=== PATIENT | male | born 1990 | race Caucasian/White ===

== ENCOUNTER 2016-07-21 01:20 | Inpatient (IN) | payer MEDICAID ==
[~2016-07-21] VITALS: Ht 177.8 cm; Wt 100.2 kg
[2016-07-21] MEDS ORDERED: HALOPERIDOL LACTATE 5 MG/ML VIAL IM ONE (02:00)
[2016-07-21] MEDS ORDERED: DiphenhydrAMINE HCL 50 MG/ML VIAL IM ONE (02:00)
[2016-07-21] MEDS ORDERED: LORazepam 2 MG/ML VIAL IM ONE (02:00)
[2016-07-21] MEDS ORDERED: HALOPERIDOL 5 MG TABLET PO PRN (03:00)
[2016-07-21] MEDS ORDERED: ZOLPIDEM TARTRATE 10 MG TABLET PO PRN (03:00)
[2016-07-21 03:23] VITALS: BP 136/79
[2016-07-21 04:34] LABS: BASOPHILS # (AUTO) 0.03 K/uL (0.00-0.20); BASOPHILS % (AUTO) 0.3 % (0.0-2.0); EOSINOPHILS # (AUTO) 0.05 K/uL (0.00-0.70); EOSINOPHILS % (AUTO) 0.52 % (1.0-6.0); HEMOGLOBIN 14.5 g/dL (13.5-17.5); LYMPHOCYTES # (AUTO) 1.9 K/uL (1.0-4.8); LYMPHOCYTES % (AUTO) 19.5 % (22.0-44.0); MEAN CORPUSCULAR HEMOGLOBIN 32.1 pg (26.0-34.0); MEAN CORPUSCULAR HGB CONC 33.9 G/dL (31.0-37.0); MEAN CORPUSCULAR VOLUME 95 fL (80-100); MONOCYTES # (AUTO) 0.8 K/uL (0.1-1.0); MONOCYTES % (AUTO) 8.2 % (2.0-9.0); NEUTROPHILS # (AUTO) 7.1 K/uL (1.8-7.7); NEUTROPHILS % (AUTO) 71.4 % (40.0-70.0); PLATELET COUNT (AUTO) 172 K/uL (150-450); RED BLOOD CELL COUNT(AUTO) 4.53 MIL/uL (4.50-5.90); RED CELL DISTRIBUTION WIDTH 13.1 % (11.5-14.5)
[2016-07-21 04:42] LABS: ANION GAP 6 mmol/L (8-16); CALCIUM, TOTAL 8.8 mg/dL (8.8-10.5); CARBON DIOXIDE 29 mmol/L (22-29); CHLORIDE 105 mmol/L (98-107); CREATININE 0.83 mg/dL (0.60-1.30); GLOMERULAR FILTR. RATE CALC > 60 mL/min (>60); POTASSIUM 4.1 mmol/L (3.5-5.1); SODIUM SERUM 140 mmol/L (136-145); UREA NITROGEN, BLOOD 12 mg/dL (7-18)
[2016-07-21 04:47] LABS: ALANINE AMINOTRANSFERASE 45 U/L (12-78); ALBUMIN 3.8 g/dL (3.4-5.0); ASPARTATE AMINOTRANSFERASE 35 U/L (15-37); BILIRUBIN,TOTAL 0.3 mg/dL (0.1-1.0); TOTAL PROTEIN, SERUM 7.5 g/dL (6.4-8.2)
[2016-07-21 05:47] LABS: APPEARANCE,URINE CLEAR (CLEAR); GLUCOSE, URINE (UA) NEGATIVE (NEGATIVE); KETONES,URINE NEGATIVE (NEGATIVE); LEUKOCYTE ESTERASE ,URINE NEGATIVE (NEGATIVE); OCCULT BLOOD,URINE NEGATIVE (NEGATIVE); PH,URINE 5.5 (5.0-8.0); PROTEIN,URINE NEGATIVE (NEGATIVE)
[2016-07-21 05:50] LABS: ADD UA MICROSCOPIC NO
[2016-07-21 06:08] VITALS: BP 119/73
[2016-07-21 10:37] VITALS: BP 129/81
[2016-07-21] MEDS ORDERED: MAGNESIUM HYDROXIDE SUSPENSION 30 ML UDCUP PO PRN (12:15)
[2016-07-21] MEDS ORDERED: MAG HYDROX/AL HYDROX/SIMETH ES 30 ML SUSPENSION UDCUP PO PRN (12:15)
[2016-07-21] MEDS ORDERED: GuaiFENesin/D-METHORPHAN [SUGAR-FREE] 200-20MG/10 ML SYRUP UDCUP PO PRN (12:15)
[2016-07-21] MEDS ORDERED: TUBERCULIN, PURIFIED PROTEIN DERIVATIVE 5 TU/0.1 ML SYG ID ONE (12:15)
[2016-07-21] MEDS ORDERED: OLANZapine 5 MG RAPDIS TABLET PO PRN (12:15)
[2016-07-21] MEDS ORDERED: LOPERAMIDE HCL 2 MG CAPSULE PO PRN (12:15)
[2016-07-21] MEDS ORDERED: PROMETHAZINE HCL 25 MG TABLET PO PRN (12:15)
[2016-07-21] MEDS ORDERED: HydrOXYzine PAMOATE 50 MG CAPSULE PO PRN (12:15)
[2016-07-21] MEDS: LORazepam 2 MG TABLET PO PRN (15:20)
[2016-07-21 16:00] VITALS: BP 116/60
[2016-07-21] MEDS: THIAMINE HCL 100 MG TABLET PO SCH (16:32)
[2016-07-21] MEDS: MIRTAZAPINE 15 MG TABLET PO SCH (20:37)
[2016-07-21] MEDS ORDERED: QUEtiapine FUMARATE 200 MG TABLET PO SCH (21:00)
[2016-07-21] MEDS ORDERED: OLANZapine 5 MG RAPDIS TABLET PO SCH (21:00)
[2016-07-21] MEDS ORDERED: ClonazePAM 1 MG TABLET PO SCH (21:00)
[2016-07-22 08:27] VITALS: BP 131/75
[2016-07-22] MEDS: MULTIVITAMINS WITH MINERALS, THERAPEUTIC TABLET PO SCH (08:30)
[2016-07-22] MEDS: THIAMINE HCL 100 MG TABLET PO SCH ×2 (08:30→16:11)
[2016-07-22] MEDS: NALTREXONE HCL 50 MG TABLET PO SCH (08:30)
[2016-07-22] MEDS: FOLIC ACID 1 MG TABLET PO SCH (08:30)
[2016-07-22] MEDS ORDERED: CETI-260 PO (09:00)
[2016-07-22] MEDS ORDERED: FLUT16H NASAL (09:01)
[2016-07-22] MEDS ORDERED: KETO5DRO6 OU (09:02)
[2016-07-22] MEDS: FLUTICASONE PROPIONATE 50 MCG/SPRAY 16 GM NASAL SPRAY NASAL SCH (09:18)
[2016-07-22] MEDS: CETIRIZINE HCL 10 MG TABLET PO SCH (09:18)
[2016-07-22] MEDS: NAPHAZOLINE/PHENIR 0.025-0.3% 15 ML OPHTHALMIC SOLUTION OU SCH ×2 (11:28→16:12)
[2016-07-22] MEDS: QUEtiapine FUMARATE 100 MG TABLET PO PRN (14:22)
[2016-07-22] MEDS: LORazepam 2 MG TABLET PO PRN (14:22)
[2016-07-22] MEDS: TERBINAFINE HCL 1% 30 GM CREAM TP SCH (16:11)
[2016-07-22 16:25] VITALS: BP 124/72
[2016-07-22] MEDS: QUEtiapine FUMARATE 200 MG TABLET PO SCH (20:29)
[2016-07-22] MEDS: MIRTAZAPINE 15 MG TABLET PO SCH (20:30)
[2016-07-23 08:00] VITALS: BP 146/85
[2016-07-23] MEDS: THIAMINE HCL 100 MG TABLET PO SCH ×2 (08:09→16:22)
[2016-07-23] MEDS: CETIRIZINE HCL 10 MG TABLET PO SCH (08:09)
[2016-07-23] MEDS: FOLIC ACID 1 MG TABLET PO SCH (08:09)
[2016-07-23] MEDS: MULTIVITAMINS WITH MINERALS, THERAPEUTIC TABLET PO SCH (08:09)
[2016-07-23] MEDS: NALTREXONE HCL 50 MG TABLET PO SCH (08:09)
[2016-07-23] MEDS: QUEtiapine FUMARATE 100 MG TABLET PO PRN (08:11)
[2016-07-23] MEDS: LORazepam 2 MG TABLET PO PRN (08:11)
[2016-07-23] MEDS: NAPHAZOLINE/PHENIR 0.025-0.3% 15 ML OPHTHALMIC SOLUTION OU SCH ×2 (08:12→16:22)
[2016-07-23] MEDS: FLUTICASONE PROPIONATE 50 MCG/SPRAY 16 GM NASAL SPRAY NASAL SCH (08:12)
[2016-07-23] MEDS ORDERED: ONDANSETRON HCL 4 MG TABLET PO PRN (08:15)
[2016-07-23] MEDS: TERBINAFINE HCL 1% 30 GM CREAM TP SCH ×2 (09:36→16:22)
[2016-07-23 16:43] VITALS: BP 117/76
[2016-07-23] MEDS: MIRTAZAPINE 15 MG TABLET PO SCH (21:31)
[2016-07-23] MEDS: QUEtiapine FUMARATE 200 MG TABLET PO SCH (21:31)
[2016-07-24 00:28] VITALS: BP 126/98
[2016-07-24 08:00] VITALS: BP 143/99
[2016-07-24] MEDS: MULTIVITAMINS WITH MINERALS, THERAPEUTIC TABLET PO SCH (09:00)
[2016-07-24] MEDS: NALTREXONE HCL 50 MG TABLET PO SCH (09:00)
[2016-07-24] MEDS: CETIRIZINE HCL 10 MG TABLET PO SCH (09:00)
[2016-07-24] MEDS: TERBINAFINE HCL 1% 30 GM CREAM TP SCH ×2 (09:00→18:47)
[2016-07-24] MEDS: THIAMINE HCL 100 MG TABLET PO SCH ×2 (09:00→18:45)
[2016-07-24] MEDS: FOLIC ACID 1 MG TABLET PO SCH (09:00)
[2016-07-24] MEDS: FLUTICASONE PROPIONATE 50 MCG/SPRAY 16 GM NASAL SPRAY NASAL SCH (09:00)
[2016-07-24] MEDS: NAPHAZOLINE/PHENIR 0.025-0.3% 15 ML OPHTHALMIC SOLUTION OU SCH ×2 (09:26→18:47)
[2016-07-24 16:35] VITALS: BP 123/76
[2016-07-24] MEDS: MIRTAZAPINE 15 MG TABLET PO SCH ×2 (21:47→22:00)
[2016-07-24] MEDS: QUEtiapine FUMARATE 200 MG TABLET PO SCH ×2 (21:47→22:00)
[2016-07-25 06:13] VITALS: BP 130/81
[2016-07-25] MEDS: ACETAMINOPHEN 325 MG TABLET PO PRN (06:15)
[2016-07-25] MEDS: FOLIC ACID 1 MG TABLET PO SCH (08:14)
[2016-07-25] MEDS: TERBINAFINE HCL 1% 30 GM CREAM TP SCH ×2 (08:14→16:07)
[2016-07-25] MEDS: MULTIVITAMINS WITH MINERALS, THERAPEUTIC TABLET PO SCH (08:14)
[2016-07-25] MEDS: FLUTICASONE PROPIONATE 50 MCG/SPRAY 16 GM NASAL SPRAY NASAL SCH (08:14)
[2016-07-25] MEDS: CETIRIZINE HCL 10 MG TABLET PO SCH (08:14)
[2016-07-25] MEDS: NALTREXONE HCL 50 MG TABLET PO SCH (08:14)
[2016-07-25] MEDS: THIAMINE HCL 100 MG TABLET PO SCH ×2 (08:14→16:07)
[2016-07-25] MEDS: LORazepam 2 MG TABLET PO PRN ×2 (08:17→19:12)
[2016-07-25] MEDS: NAPHAZOLINE/PHENIR 0.025-0.3% 15 ML OPHTHALMIC SOLUTION OU SCH ×2 (08:24→16:07)
[2016-07-25 08:29] VITALS: BP 128/81
[2016-07-25] MEDS: QUEtiapine FUMARATE 100 MG TABLET PO PRN (09:43)
[2016-07-25 17:09] VITALS: BP 136/75
[2016-07-25] MEDS: MIRTAZAPINE 15 MG TABLET PO SCH (20:35)
[2016-07-25] MEDS: QUEtiapine FUMARATE 200 MG TABLET PO SCH (20:35)
[2016-07-25] MEDS ORDERED: QUEtiapine FUMARATE 100 MG TABLET PO ONE (21:30)
[2016-07-26 08:33] VITALS: BP 144/94
[2016-07-26] MEDS: FOLIC ACID 1 MG TABLET PO SCH (09:02)
[2016-07-26] MEDS: THIAMINE HCL 100 MG TABLET PO SCH ×2 (09:02→16:21)
[2016-07-26] MEDS: MULTIVITAMINS WITH MINERALS, THERAPEUTIC TABLET PO SCH (09:02)
[2016-07-26] MEDS: QUEtiapine FUMARATE 100 MG TABLET PO PRN (09:03)
[2016-07-26] MEDS: NAPHAZOLINE/PHENIR 0.025-0.3% 15 ML OPHTHALMIC SOLUTION OU SCH ×2 (09:11→16:22)
[2016-07-26] MEDS: NALTREXONE HCL 50 MG TABLET PO SCH (09:11)
[2016-07-26] MEDS: FLUTICASONE PROPIONATE 50 MCG/SPRAY 16 GM NASAL SPRAY NASAL SCH (09:11)
[2016-07-26] MEDS: TERBINAFINE HCL 1% 30 GM CREAM TP SCH ×2 (09:11→16:21)
[2016-07-26] MEDS: CETIRIZINE HCL 10 MG TABLET PO SCH (09:11)
[2016-07-26 16:31] VITALS: BP 132/78
[2016-07-26] MEDS: MIRTAZAPINE 15 MG TABLET PO SCH (20:21)
[2016-07-26] MEDS ORDERED: QUEtiapine FUMARATE 200 MG TABLET PO SCH (21:00)
[2016-07-27 08:07] VITALS: BP 132/82
[2016-07-27] MEDS: ACETAMINOPHEN 325 MG TABLET PO PRN (08:07)
[2016-07-27] MEDS: FLUTICASONE PROPIONATE 50 MCG/SPRAY 16 GM NASAL SPRAY NASAL SCH (08:07)
[2016-07-27] MEDS: FOLIC ACID 1 MG TABLET PO SCH (08:07)
[2016-07-27] MEDS: THIAMINE HCL 100 MG TABLET PO SCH (08:07)
[2016-07-27] MEDS: TERBINAFINE HCL 1% 30 GM CREAM TP SCH (08:08)
[2016-07-27] MEDS: MULTIVITAMINS WITH MINERALS, THERAPEUTIC TABLET PO SCH (08:08)
[2016-07-27] MEDS: CETIRIZINE HCL 10 MG TABLET PO SCH (08:08)
[2016-07-27] MEDS: NALTREXONE HCL 50 MG TABLET PO SCH (08:08)
[2016-07-27] MEDS: NAPHAZOLINE/PHENIR 0.025-0.3% 15 ML OPHTHALMIC SOLUTION OU SCH (08:09)
[2016-07-27 08:46] VITALS: BP 132/82
[2016-07-27] MEDS ORDERED: NALT50 PO (10:26)
[2016-07-27] MEDS ORDERED: QUET300T2 PO (10:26)
[2016-07-27] MEDS ORDERED: MIRT45TA PO (10:26)
[2016-07-27] MEDS ORDERED: [UNRECOGNIZED DRUG - CODE] OU (10:39)
[2016-07-27] MEDS ORDERED: QUEtiapine FUMARATE 300 MG TABLET PO SCH (21:00)
== END 2016-07-27 11:00 | disposition home or self-care (01) | DRG 750 ==
LOC: EMS 01:23 → 3EC 03:15 → MERGE 03:15
PROVIDERS: ADMIT Psychiatry & Neurology Psychiatry; ATTEND Psychiatry & Neurology Psychiatry
PROC: GZ51ZZZ Individual Psychotherapy, Behavioral (ICD-10-PCS; principal; 2016-07-21)
DX: F25.0 Schizoaffective disorder, bipolar type (principal); R45.851 Suicidal ideations; Z91.14 Patient's other noncompliance with medication regimen; F17.210 Nicotine dependence, cigarettes, uncomplicated; F12.90 Cannabis use, unspecified, uncomplicated; R45.87 Impulsiveness; K21.9 Gastro-esophageal reflux disease without esophagitis; Z79.899 Other long term (current) drug therapy
CPT/HCPCS: 86592; 87389; 96372; 99285; G0480; J1200; J1630; J2060; Q0162

== ENCOUNTER 2016-08-04 16:41 | Inpatient (IN) | payer MEDICAID ==
[~2016-08-04] VITALS: Ht 177.8 cm; Wt 99.9 kg
[~2016-08-04 16:41] MED LIST: CETI-260 PO; FLUT16H NASAL; MIRT45TA PO; NALT50 PO; QUET300T2 PO; [UNRECOGNIZED DRUG - CODE] OU
[2016-08-04] MEDS ORDERED: HALOPERIDOL 5 MG TABLET PO PRN (17:30)
[2016-08-04] MEDS ORDERED: ZOLPIDEM TARTRATE 10 MG TABLET PO PRN (17:30)
[2016-08-04] MEDS ORDERED: LORazepam 2 MG TABLET PO PRN (17:30)
[2016-08-04] MEDS: DiphenhydrAMINE HCL 50 MG/ML VIAL IM ONE ×2 (17:59→19:01)
[2016-08-04] MEDS: HALOPERIDOL LACTATE 5 MG/ML VIAL IM ONE ×2 (17:59→19:01)
[2016-08-04] MEDS: LORazepam 2 MG/ML VIAL IM ONE ×2 (18:00→19:01)
[2016-08-04 18:02] LABS: BASOPHILS # (AUTO) 0.04 K/uL (0.00-0.20); BASOPHILS % (AUTO) 0.3 % (0.0-2.0); EOSINOPHILS # (AUTO) 0.02 K/uL (0.00-0.70); EOSINOPHILS % (AUTO) 0.14 % (1.0-6.0); HEMOGLOBIN 15.7 g/dL (13.5-17.5); LYMPHOCYTES # (AUTO) 1.4 K/uL (1.0-4.8); LYMPHOCYTES % (AUTO) 9.8 % (22.0-44.0); MEAN CORPUSCULAR HEMOGLOBIN 31.8 pg (26.0-34.0); MEAN CORPUSCULAR HGB CONC 33.5 G/dL (31.0-37.0); MEAN CORPUSCULAR VOLUME 95 fL (80-100); MONOCYTES # (AUTO) 0.8 K/uL (0.1-1.0); MONOCYTES % (AUTO) 5.6 % (2.0-9.0); NEUTROPHILS # (AUTO) 12.2 K/uL (1.8-7.7); NEUTROPHILS % (AUTO) 84.3 % (40.0-70.0); PLATELET COUNT (AUTO) 200 K/uL (150-450); RED BLOOD CELL COUNT(AUTO) 4.94 MIL/uL (4.50-5.90); RED CELL DISTRIBUTION WIDTH 13.9 % (11.5-14.5); WHITE BLOOD COUNT (AUTO) 14.4 K/uL (4.5-11.0)
[2016-08-04 18:16] LABS: ANION GAP 12 mmol/L (8-16); CALCIUM, TOTAL 9.1 mg/dL (8.8-10.5); CARBON DIOXIDE 26 mmol/L (22-29); CHLORIDE 106 mmol/L (98-107); CREATININE 0.97 mg/dL (0.60-1.30); GLOMERULAR FILTR. RATE CALC > 60 mL/min (>60); POTASSIUM 3.4 mmol/L (3.5-5.1); SODIUM SERUM 144 mmol/L (136-145); UREA NITROGEN, BLOOD 14 mg/dL (7-18)
[2016-08-04 18:20] LABS: ALANINE AMINOTRANSFERASE 62 U/L (12-78); ALBUMIN 4.2 g/dL (3.4-5.0); ASPARTATE AMINOTRANSFERASE 23 U/L (15-37); BILIRUBIN,TOTAL 0.4 mg/dL (0.1-1.0); TOTAL PROTEIN, SERUM 8.2 g/dL (6.4-8.2)
[2016-08-04] MEDS ORDERED: POTASSIUM CHLORIDE 20 MEQ ER TABLET PO ONE (19:15)
[2016-08-04 20:48] VITALS: BP 152/92
[2016-08-05 08:31] VITALS: BP 142/85
[2016-08-05] MEDS ORDERED: PROMETHAZINE HCL 25 MG TABLET PO PRN (11:30)
[2016-08-05] MEDS ORDERED: ACETAMINOPHEN 325 MG TABLET PO PRN (11:30)
[2016-08-05] MEDS ORDERED: MAGNESIUM HYDROXIDE SUSPENSION 30 ML UDCUP PO PRN (11:30)
[2016-08-05] MEDS ORDERED: GuaiFENesin/D-METHORPHAN [SUGAR-FREE] 200-20MG/10 ML SYRUP UDCUP PO PRN (11:30)
[2016-08-05] MEDS ORDERED: MAG HYDROX/AL HYDROX/SIMETH ES 30 ML SUSPENSION UDCUP PO PRN (11:30)
[2016-08-05] MEDS ORDERED: QUEtiapine FUMARATE 100 MG TABLET PO PRN (11:30)
[2016-08-05] MEDS ORDERED: HydrOXYzine PAMOATE 50 MG CAPSULE PO PRN (11:30)
[2016-08-05] MEDS ORDERED: LOPERAMIDE HCL 2 MG CAPSULE PO PRN (11:30)
[2016-08-05 16:45] VITALS: BP 138/82
[2016-08-05] MEDS: THIAMINE HCL 100 MG TABLET PO SCH (17:07)
[2016-08-05] MEDS: NALTREXONE HCL 50 MG TABLET PO SCH ×2 (21:00→22:00)
[2016-08-05] MEDS: QUEtiapine FUMARATE 200 MG TABLET PO SCH ×2 (21:00→22:00)
[2016-08-05] MEDS ORDERED: MIRTAZAPINE 15 MG TABLET PO SCH (21:00)
[2016-08-06 07:41] LABS: BASOPHILS % (AUTO) 0.5 % (0.0-2.0); EOSINOPHILS % (AUTO) 2.1 % (1.0-6.0); HEMATOCRIT 45.8 % (41-53); HEMOGLOBIN 15.1 g/dL (13.5-17.5); LYMPHOCYTES # (AUTO) 2.8 K/uL (1.0-4.8); LYMPHOCYTES % (AUTO) 35.5 % (22.0-44.0); MEAN CORPUSCULAR VOLUME 97 fL (80-100); MONOCYTES # (AUTO) 0.7 K/uL (0.1-1.0); NEUTROPHILS # (AUTO) 4.2 K/uL (1.8-7.7); NEUTROPHILS % (AUTO) 52.9 % (40.0-70.0); PLATELET COUNT (AUTO) 197 K/uL (150-450); RED BLOOD CELL COUNT(AUTO) 4.73 MIL/uL (4.50-5.90); RED CELL DISTRIBUTION WIDTH 13.3 % (11.5-14.5)
[2016-08-06] MEDS: FOLIC ACID 1 MG TABLET PO SCH (08:32)
[2016-08-06] MEDS: MULTIVITAMINS WITH MINERALS, THERAPEUTIC TABLET PO SCH (08:32)
[2016-08-06] MEDS: THIAMINE HCL 100 MG TABLET PO SCH ×2 (08:32→17:06)
[2016-08-06] MEDS ORDERED: NALTREXONE HCL 50 MG TABLET PO SCH (09:00)
[2016-08-06 09:17] VITALS: BP 106/71
[2016-08-06 16:32] VITALS: BP 119/74
[2016-08-06] MEDS: NALTREXONE HCL 50 MG TABLET PO SCH (20:32)
[2016-08-06] MEDS ORDERED: QUEtiapine FUMARATE 300 MG TABLET PO SCH (21:00)
[2016-08-07 10:06] VITALS: BP 118/82
[2016-08-07] MEDS ORDERED: QUET300T18 PO (10:43)
[2016-08-07] MEDS ORDERED: NALT50 PO ×2 (10:43→15:28)
[2016-08-07] MEDS: THIAMINE HCL 100 MG TABLET PO SCH ×2 (11:15→16:00)
[2016-08-07] MEDS: MULTIVITAMINS WITH MINERALS, THERAPEUTIC TABLET PO SCH (11:15)
[2016-08-07] MEDS: FOLIC ACID 1 MG TABLET PO SCH (11:15)
[2016-08-07] MEDS ORDERED: ACAM333T7 PO (14:45)
== END 2016-08-07 21:49 | disposition home or self-care (01) | DRG 750 ==
LOC: EMS 16:42 → 3EC 19:28
PROVIDERS: ATTEND Psychiatry & Neurology Psychiatry
PROC: GZHZZZZ Group Psychotherapy (ICD-10-PCS; principal; 2016-08-04)
PROC: GZ51ZZZ Individual Psychotherapy, Behavioral (ICD-10-PCS; 2016-08-04)
DX: F25.9 Schizoaffective disorder, unspecified (principal); R45.851 Suicidal ideations; Z91.19 Patient's noncompliance with other medical treatment and regimen; F32.9 Major depressive disorder, single episode, unspecified; E66.9 Obesity, unspecified; F17.210 Nicotine dependence, cigarettes, uncomplicated; F14.90 Cocaine use, unspecified, uncomplicated; F12.10 Cannabis abuse, uncomplicated; F15.90 Other stimulant use, unspecified, uncomplicated; Z53.29 Procedure and treatment not carried out because of patient's decision for other reasons; Z72.89 Other problems related to lifestyle; Z68.31 Body mass index [BMI] 31.0-31.9, adult; Z79.899 Other long term (current) drug therapy
CPT/HCPCS: 99285; G0480; J1200; J1630; J2060

== ENCOUNTER 2016-12-05 01:07 | Inpatient (IN) | payer MEDICAID ==
[~2016-12-05] VITALS: Ht 175.3 cm; Wt 102.1 kg
[~2016-12-05 01:07] MED LIST changes: +QUET300T18 PO
[2016-12-05 01:31] LABS: BASOPHILS % (AUTO) 0.3 % (0.0-2.0); EOSINOPHILS % (AUTO) 1.1 % (1.0-6.0); HEMATOCRIT 45.6 % (41-53); HEMOGLOBIN 15.7 g/dL (13.5-17.5); LYMPHOCYTES # (AUTO) 2.6 K/uL (1.0-4.8); LYMPHOCYTES % (AUTO) 31.6 % (22.0-44.0); MEAN CORPUSCULAR HEMOGLOBIN 32.4 pg (26.0-34.0); MEAN CORPUSCULAR HGB CONC 34.4 G/dL (31.0-37.0); MEAN CORPUSCULAR VOLUME 94 fL (80-100); MONOCYTES # (AUTO) 0.8 K/uL (0.1-1.0); MONOCYTES % (AUTO) 9.8 % (2.0-9.0); NEUTROPHILS # (AUTO) 4.8 K/uL (1.8-7.7); NEUTROPHILS % (AUTO) 57.2 % (40.0-70.0); PLATELET COUNT (AUTO) 202 K/uL (150-450); RED BLOOD CELL COUNT(AUTO) 4.84 MIL/uL (4.50-5.90); WHITE BLOOD COUNT (AUTO) 8.4 K/uL (4.5-11.0)
[2016-12-05 01:40] LABS: ANION GAP 11 mmol/L (8-16); CALCIUM, TOTAL 8.6 mg/dL (8.8-10.5); CARBON DIOXIDE 24 mmol/L (22-29); CHLORIDE 104 mmol/L (98-107); CREATININE 0.95 mg/dL (0.60-1.30); GLOMERULAR FILTR. RATE CALC > 60 mL/min (>60); POTASSIUM 3.6 mmol/L (3.5-5.1); SODIUM SERUM 139 mmol/L (136-145); UREA NITROGEN, BLOOD 13 mg/dL (7-18)
[2016-12-05 01:43] LABS: ALANINE AMINOTRANSFERASE 73 U/L (12-78); ALBUMIN 4.1 g/dL (3.4-5.0); ASPARTATE AMINOTRANSFERASE 27 U/L (15-37); BILIRUBIN,TOTAL 0.6 mg/dL (0.1-1.0)
[2016-12-05] MEDS ORDERED: ZOLPIDEM TARTRATE 10 MG TABLET PO PRN (02:30)
[2016-12-05 03:20] LABS: CHOL/HDL RATIO 5.7 (4.2-7.3)
[2016-12-05] MEDS ORDERED: DiphenhydrAMINE HCL 50 MG/ML VIAL IM ONE (04:15)
[2016-12-05] MEDS ORDERED: HALOPERIDOL LACTATE 5 MG/ML VIAL IM ONE (04:15)
[2016-12-05] MEDS ORDERED: LORazepam 2 MG/ML VIAL IM ONE (04:15)
[2016-12-05] MEDS ORDERED: HALOPERIDOL 5 MG TABLET PO ONE (04:45)
[2016-12-05] MEDS ORDERED: LORazepam 2 MG TABLET PO ONE (04:45)
[2016-12-05] MEDS ORDERED: DiphenhydrAMINE HCL 25 MG CAPSULE PO ONE (04:45)
[2016-12-05 16:16] VITALS: BP 113/82
[2016-12-05] MEDS: LORazepam 2 MG TABLET PO PRN (19:41)
[2016-12-06 06:35] VITALS: BP 117/87
[2016-12-06 08:00] VITALS: BP 124/72
[2016-12-06] MEDS: HALOPERIDOL 5 MG TABLET PO PRN (13:04)
[2016-12-06] MEDS: LORazepam 2 MG TABLET PO PRN (13:04)
[2016-12-06 16:00] VITALS: BP 137/84
[2016-12-06] MEDS: QUEtiapine FUMARATE 100 MG TABLET PO SCH (20:38)
[2016-12-07 06:29] VITALS: BP 129/71
[2016-12-07 08:24] VITALS: BP 116/61
[2016-12-07] MEDS: HALOPERIDOL 5 MG TABLET PO PRN ×2 (12:13→17:02)
[2016-12-07] MEDS: LORazepam 2 MG TABLET PO PRN ×2 (12:13→17:02)
[2016-12-07 16:00] VITALS: BP 140/88
[2016-12-07] MEDS: QUEtiapine FUMARATE 100 MG TABLET PO SCH (20:30)
[2016-12-08 06:03] VITALS: BP 121/70
[2016-12-08 08:37] VITALS: BP 114/74
[2016-12-08] MEDS: LORazepam 2 MG TABLET PO PRN (10:39)
[2016-12-08] MEDS ORDERED: QUET100T PO (15:11)
== END 2016-12-08 15:30 | disposition home or self-care (01) | DRG 754 ==
LOC: EMS 01:08 → B3A 14:59
PROVIDERS: ADMIT Psychiatry & Neurology Child & Adolescent Psychiatry; ATTEND Psychiatry & Neurology Child & Adolescent Psychiatry
DX: F32.9 Major depressive disorder, single episode, unspecified (principal); R45.850 Homicidal ideations; F12.90 Cannabis use, unspecified, uncomplicated
CPT/HCPCS: G0480

== ENCOUNTER 2017-05-28 15:46 | Inpatient (IN) | payer MEDICAID ==
[~2017-05-28] VITALS: Ht 175.3 cm; Wt 97.8 kg
[~2017-05-28 15:46] MED LIST changes: -CETI-260 PO; -FLUT16H NASAL; -MIRT45TA PO; -NALT50 PO; +QUET100T PO; -QUET300T18 PO; -QUET300T2 PO; -[UNRECOGNIZED DRUG - CODE] OU
[2017-05-28] MEDS ORDERED: SODIUM CHLORIDE 0.9% 1,000 ML IV ONE ×2 (16:30→18:00)
[2017-05-28 16:38] LABS: HEMATOCRIT 45.2 % (41-53); HEMOGLOBIN 15.6 g/dL (13.5-17.5); MEAN CORPUSCULAR HEMOGLOBIN 32.2 pg (26.0-34.0); MEAN CORPUSCULAR HGB CONC 34.5 G/dL (31.0-37.0); MEAN CORPUSCULAR VOLUME 93 fL (80-100); PLATELET COUNT (AUTO) 164 K/uL (150-450); RED BLOOD CELL COUNT(AUTO) 4.84 MIL/uL (4.50-5.90); RED CELL DISTRIBUTION WIDTH 13.3 % (11.5-14.5)
[2017-05-28 16:41] LABS: APPEARANCE,URINE CLEAR (CLEAR); BILIRUBIN,URINE NEGATIVE (NEGATIVE); GLUCOSE, URINE (UA) NEGATIVE (NEGATIVE); KETONES,URINE TRACE mg/dL (NEGATIVE); LEUKOCYTE ESTERASE ,URINE NEGATIVE (NEGATIVE); NITRATE,URINE NEGATIVE (NEGATIVE); OCCULT BLOOD,URINE TRACE (NEGATIVE); PROTEIN,URINE TRACE (NEGATIVE); UROBILINOGEN,URINE 0.2 mg/dL (<=1.0)
[2017-05-28 16:43] LABS: GLUCOSE,POINT OF CARE 122 MG/DL (70-110)
[2017-05-28 16:46] LABS: AMPHET/METH SCREEN,URINE NEGATIVE (NEGATIVE); BARBITURATE SCREEN, URINE NEGATIVE (NEGATIVE); BENZODIAZEPINES SCREEN,URINE POSITIVE (NEGATIVE); CANNABINOID SCREEN,URINE NEGATIVE (NEGATIVE); COCAINE SCREEN,URINE NEGATIVE (NEGATIVE); METHADONE SCREEN, URINE NEGATIVE (NEGATIVE); OPIATE SCREEN,URINE NEGATIVE (NEGATIVE)
[2017-05-28 16:47] LABS: PHENCYCLIDINE SCREEN,URINE NEGATIVE (NEGATIVE)
[2017-05-28 16:48] LABS: ANION GAP 13 mmol/L (8-16); CALCIUM, TOTAL 8.8 mg/dL (8.8-10.5); CARBON DIOXIDE 24 mmol/L (22-29); CHLORIDE 102 mmol/L (98-107); CREATININE 0.92 mg/dL (0.60-1.30); GLOMERULAR FILTR. RATE CALC > 60 mL/min (>60); POTASSIUM 3.5 mmol/L (3.5-5.1); SODIUM SERUM 139 mmol/L (136-145); UREA NITROGEN, BLOOD 12 mg/dL (7-18)
[2017-05-28 16:53] LABS: WBC,URINE 0-2 /HPF (0-5)
[2017-05-28 16:54] LABS: BACTERIA,URINE Few /HPF (None Seen); SQUAMOUS EPITHELIAL CELL,UR Rare /LPF (None Seen)
[2017-05-28 16:55] LABS: ALANINE AMINOTRANSFERASE 52 U/L (12-78); ALBUMIN 4.1 g/dL (3.4-5.0); ALKALINE PHOSPHATASE 101 U/L (46-116); ASPARTATE AMINOTRANSFERASE 21 U/L (15-37); MUCUS,URINE Few LPF (None Seen); TOTAL PROTEIN, SERUM 7.7 g/dL (6.4-8.2)
[2017-05-28 17:04] LABS: BAND NEUTROPHILS % (MANUAL) 8 % (1-5); LYMPHOCYTES % (MANUAL) 2 % (22-44); MONOCYTES % (MANUAL) 8 % (2-9); SEGMENTED NEUTROPHILS % 82 % (40-70)
[2017-05-28 17:05] LABS: GLUCOSE,RANDOM 129 mg/dL (70-110)
[2017-05-28 17:07] LABS: ACETAMINOPHEN < 2 mcg/mL (10-30)
[2017-05-28 17:39] LABS: SALICYLATE < 2.8 mg/dL (2.8-20.0)
[2017-05-28] MEDS ORDERED: FLUMAZENIL 0.1 MG/ML 5 ML VIAL IVP ONE (18:00)
[2017-05-29 00:44] VITALS: BP 157/88
[2017-05-29] MEDS: LORazepam 2 MG TABLET PO PRN (10:22)
[2017-05-29] MEDS: HALOPERIDOL 5 MG TABLET PO PRN (10:22)
[2017-05-29] MEDS ORDERED: LORazepam 2 MG/ML VIAL IM ONE (19:30)
[2017-05-29] MEDS ORDERED: HALOPERIDOL LACTATE 5 MG/ML VIAL IM ONE (19:30)
[2017-05-29] MEDS ORDERED: DiphenhydrAMINE HCL 50 MG/ML VIAL IM ONE (19:30)
[2017-05-29] MEDS ORDERED: HALOPERIDOL LACTATE 5 MG/ML VIAL ONE (19:45)
[2017-05-29] MEDS ORDERED: LORazepam 2 MG/ML VIAL ONE (19:45)
[2017-05-29] MEDS ORDERED: DiphenhydrAMINE HCL 50 MG/ML VIAL ONE (19:45)
[2017-05-30] MEDS: OLANZapine 5 MG RAPDIS TABLET PO SCH ×2 (10:42→16:09)
[2017-05-30] MEDS: LORazepam 2 MG TABLET PO PRN (16:11)
[2017-05-30] MEDS: HALOPERIDOL 5 MG TABLET PO PRN (16:11)
[2017-05-30] MEDS: ZOLPIDEM TARTRATE 10 MG TABLET PO PRN (20:36)
[2017-05-31 07:45] LABS: BASOPHILS % (AUTO) 0.2 % (0.0-2.0); EOSINOPHILS % (AUTO) 0.8 % (1.0-6.0); HEMATOCRIT 42.4 % (41-53); HEMOGLOBIN 14.7 g/dL (13.5-17.5); LYMPHOCYTES # (AUTO) 1.6 K/uL (1.0-4.8); LYMPHOCYTES % (AUTO) 15.1 % (22.0-44.0); MEAN CORPUSCULAR HEMOGLOBIN 32.3 pg (26.0-34.0); MEAN CORPUSCULAR HGB CONC 34.6 G/dL (31.0-37.0); MEAN CORPUSCULAR VOLUME 93 fL (80-100); MONOCYTES # (AUTO) 1.2 K/uL (0.1-1.0); MONOCYTES % (AUTO) 11.4 % (2.0-9.0); NEUTROPHILS # (AUTO) 7.9 K/uL (1.8-7.7); NEUTROPHILS % (AUTO) 72.5 % (40.0-70.0); PLATELET COUNT (AUTO) 163 K/uL (150-450); RED BLOOD CELL COUNT(AUTO) 4.54 MIL/uL (4.50-5.90); RED CELL DISTRIBUTION WIDTH 13.4 % (11.5-14.5)
[2017-05-31 09:28] VITALS: BP 127/70
[2017-05-31] MEDS: LORazepam 2 MG TABLET PO PRN (10:34)
[2017-05-31] MEDS: OLANZapine 5 MG RAPDIS TABLET PO SCH ×2 (10:34→17:55)
[2017-05-31] MEDS: HALOPERIDOL 5 MG TABLET PO PRN (10:34)
[2017-05-31] MEDS: SERTRALINE HCL 50 MG TABLET PO SCH (12:30)
[2017-05-31 22:06] VITALS: BP 122/78
[2017-06-01] MEDS: SERTRALINE HCL 50 MG TABLET PO SCH (08:58)
[2017-06-01] MEDS: OLANZapine 5 MG RAPDIS TABLET PO SCH ×2 (08:58→16:08)
[2017-06-01 09:33] VITALS: BP 132/74
[2017-06-01 16:31] VITALS: BP 134/87
[2017-06-01] MEDS: ZOLPIDEM TARTRATE 10 MG TABLET PO PRN (20:18)
[2017-06-02 03:40] VITALS: BP 125/89
[2017-06-02] MEDS: OLANZapine 5 MG RAPDIS TABLET PO SCH ×2 (07:52→16:17)
[2017-06-02] MEDS: SERTRALINE HCL 50 MG TABLET PO SCH (07:52)
[2017-06-02 08:30] VITALS: BP 127/76
[2017-06-02 21:54] VITALS: BP 137/82
[2017-06-03] MEDS: SERTRALINE HCL 50 MG TABLET PO SCH (10:00)
[2017-06-03] MEDS: OLANZapine 5 MG RAPDIS TABLET PO SCH ×2 (10:00→16:11)
[2017-06-03 16:49] VITALS: BP 140/86
[2017-06-03] MEDS: ZOLPIDEM TARTRATE 10 MG TABLET PO PRN (20:40)
[2017-06-04 08:15] VITALS: BP 138/92
[2017-06-04] MEDS: OLANZapine 5 MG RAPDIS TABLET PO SCH ×2 (09:03→16:09)
[2017-06-04] MEDS: SERTRALINE HCL 50 MG TABLET PO SCH (09:03)
[2017-06-04 17:00] VITALS: BP 126/84
[2017-06-04] MEDS: ZOLPIDEM TARTRATE 10 MG TABLET PO PRN (20:33)
[2017-06-05 08:15] VITALS: BP 134/83
[2017-06-05] MEDS: OLANZapine 5 MG RAPDIS TABLET PO SCH ×2 (09:56→16:04)
[2017-06-05] MEDS: SERTRALINE HCL 50 MG TABLET PO SCH (09:56)
[2017-06-05 17:31] VITALS: BP 135/80
[2017-06-05] MEDS ORDERED: IBUPROFEN 600 MG TABLET PO PRN (19:15)
[2017-06-05 19:16] VITALS: BP 132/72
[2017-06-05] MEDS: ACETAMINOPHEN 325 MG TABLET PO PRN (19:16)
[2017-06-06 01:58] VITALS: BP 133/80
[2017-06-06] MEDS: ZOLPIDEM TARTRATE 10 MG TABLET PO PRN ×2 (01:58→20:19)
[2017-06-06 08:15] VITALS: BP 136/73
[2017-06-06] MEDS: SERTRALINE HCL 50 MG TABLET PO SCH (09:57)
[2017-06-06] MEDS: OLANZapine 5 MG RAPDIS TABLET PO SCH ×2 (09:57→16:01)
[2017-06-06 19:35] VITALS: BP 140/74
[2017-06-07] MEDS: OLANZapine 5 MG RAPDIS TABLET PO SCH (09:11)
[2017-06-07] MEDS: SERTRALINE HCL 50 MG TABLET PO SCH (09:11)
[2017-06-07 09:13] VITALS: BP 119/73
[2017-06-07] MEDS: ACETAMINOPHEN 325 MG TABLET PO PRN (09:13)
[2017-06-07 10:13] VITALS: BP 121/72
[2017-06-07] MEDS ORDERED: OLAN5TAB40 PO (11:38)
[2017-06-07] MEDS ORDERED: SERT50TA12 PO (11:39)
== END 2017-06-07 13:30 | disposition home or self-care (01) | DRG 751 ==
LOC: EEVIPCON 15:53 → EMS 15:53 → 3EI 22:44
PROVIDERS: ADMIT Psychiatry & Neurology Child & Adolescent Psychiatry; ATTEND Psychiatry & Neurology Child & Adolescent Psychiatry
DX: F33.2 Major depressive disorder, recurrent severe without psychotic features (principal); F25.9 Schizoaffective disorder, unspecified; E66.9 Obesity, unspecified; Z91.19 Patient's noncompliance with other medical treatment and regimen; D72.829 Elevated white blood cell count, unspecified; F12.90 Cannabis use, unspecified, uncomplicated; F17.210 Nicotine dependence, cigarettes, uncomplicated; T43.591A Poisoning by other antipsychotics and neuroleptics, accidental (unintentional), initial encounter; T50.902A Poisoning by unspecified drugs, medicaments and biological substances, intentional self-harm, initial encounter; Z79.899 Other long term (current) drug therapy; Z68.31 Body mass index [BMI] 31.0-31.9, adult
CPT/HCPCS: 82962; 93005; 96374; 99291; G0480; G0481; J1200; J1630; J2060; J3490; J7030